=== PATIENT | male | born 1960 | race Caucasian/White ===

== ENCOUNTER 2019-04-03 16:31 | Emergency (ER) | payer OTHER ==
[~2019-04-03] VITALS: Ht 180.3 cm; Wt 90.7 kg
--- NOTE | 2019-04-03 16:55 | NUR ---
Patient given written and verbal discharge instructions. Patient verbalizes understanding of instructions. Patient is ambulatory with steady gait. Refuses offer of care home placement. Patient given list of available shelters in surrounding area.
== END 2019-04-03 17:02 | disposition home or self-care (01) ==
LOC: ER 16:31
DX: K02.9 Dental caries, unspecified (principal); R22.0 Localized swelling, mass and lump, head; Z88.0 Allergy status to penicillin
CPT/HCPCS: A4663

== ENCOUNTER 2019-10-25 18:12 | Emergency (ER) | payer OTHER ==
[~2019-10-25] VITALS: Ht 177.8 cm; Wt 90.7 kg
--- NOTE | 2019-10-25 18:50 | NUR ---
DR Mariscal at the bedside for MSE.
--- NOTE | 2019-10-25 19:00 | NUR ---
ASSUMED CARE OF PT FROM DAY SHIFT NURSE PRATIBHA.
--- NOTE | 2019-10-25 19:03 | NUR ---
[id number]
[2019-10-25 19:08] VITALS: BP 150/90
--- NOTE | 2019-10-25 19:08 | NUR ---
Patient discharged to home in stable condition. Written and verbal after care instructions given. Patient verbalizes understanding of instructions. Stressed follow up or return to ER for worsening s/s. Pt ambulated out of the ER with steady gait. All belongings with pt.
== END 2019-10-25 19:08 | disposition home or self-care (01) ==
LOC: ER 18:24
DX: L03.116 Cellulitis of left lower limb (principal); L03.115 Cellulitis of right lower limb; L98.499 Non-pressure chronic ulcer of skin of other sites with unspecified severity; F17.210 Nicotine dependence, cigarettes, uncomplicated
CPT/HCPCS: A4663

== ENCOUNTER 2021-07-20 19:33 | Emergency (ER) | payer OTHER ==
[~2021-07-20] VITALS: Ht 180.3 cm; Wt 88.5 kg
--- NOTE | 2021-07-20 19:44 | NUR ---
DR Mariscal in room for LIZ
[2021-07-20] MEDS ORDERED: IV NORMAL SALINE 1000 ML BAG IV ONE (20:00)
[2021-07-20] MEDS ORDERED: ONDANSETRON 4 MG/2 ML VIAL IV ONE (20:00)
[2021-07-20] MEDS ORDERED: ACETAMINOPHEN ES 500 MG TABLET PO ONE (20:00)
[2021-07-20] MEDS ORDERED: ONDANSETRON 4 MG/2 ML VIAL ONE (20:05)
[2021-07-20] MEDS ORDERED: ACETAMINOPHEN ES 500 MG TABLET ONE (20:05)
[2021-07-20 20:11] LABS: HEMATOCRIT 43.5 % (36.7-47.1); MEAN CORPUSCULAR HEMOGLOBIN 29.8 uug (23.8-33.4); MEAN CORPUSCULAR VOLUME 86.8 fL (73.0-96.2); PLATELET COUNT (AUTO) 361 K/uL (152-348)
[2021-07-20 20:27] LABS: BILIRUBIN,DIRECT 0.3 mg/dL (0.0-0.2); BILIRUBIN,TOTAL 1.1 mg/dL (0.2-1.0); CREATININE 1.1 mg/dL (0.6-1.3); POTASSIUM 3.9 mmol/L (3.5-5.1); TOTAL PROTEIN, SERUM 9.2 g/dL (6.4-8.2)
[2021-07-20] MEDS ORDERED: IOHEXOL 300MG/ML 100 ML INFUS..BTL ONE (20:47)
--- NOTE | 2021-07-20 21:05 | NUR ---
patient went to CT
--- NOTE | 2021-07-20 21:29 | NUR ---
patient back from CT
--- NOTE | 2021-07-20 21:31 | NUR ---
patient's at bedside
--- NOTE | 2021-07-20 22:13 | NUR ---
patient pulled out the IV
[2021-07-20] MEDS ORDERED: VANCOMYCIN 1G/D5W 200 ML PIGGYBACK IV ONE (22:15)
[2021-07-20] MEDS ORDERED: CEFEPIME HCL 2 G in IV DEXTROSE 5% 100 ML IV ONE (22:15)
--- NOTE | 2021-07-20 22:20 | NUR ---
attempted to reach out . left a voice message.
[2021-07-20] MEDS ORDERED: SULF1TAB48 PO (22:21)
[2021-07-20] MEDS ORDERED: IBUP800T54 PO (22:21)
--- NOTE | 2021-07-20 22:21 | NUR ---
Patient does not wish to proceed with medical care recommended by Dr. Mariscal. Patient given information related to possible complications, up to and including , which could occur as a result of leaving the hospital at this time. Patient verbalizes understanding of risks involved due to leaving against medical advice. Patient has signed AMA form. Patient stated he just want to get out of here.
[2021-07-20 22:25] VITALS: BP 152/84
== END 2021-07-20 22:20 | disposition left against medical advice (07) ==
LOC: ER 19:41
DX: R10.32 Left lower quadrant pain (principal); R50.9 Fever, unspecified; Z53.29 Procedure and treatment not carried out because of patient's decision for other reasons; F17.210 Nicotine dependence, cigarettes, uncomplicated; R00.0 Tachycardia, unspecified; D72.829 Elevated white blood cell count, unspecified; D75.839 Thrombocytosis, unspecified; E87.1 Hypo-osmolality and hyponatremia; Z88.0 Allergy status to penicillin
CPT/HCPCS: 36415; 71045; 74177; 80048; 80076; 83605; 83690; 85025; 87040 ×2; 93005; 96361; 96374; 99285; 99406; J2405; Q9967; A9150; J0692; J7030; J7060